=== PATIENT | female | born 1975 | race American Indian/Alaskan Native ===

== ENCOUNTER 2018-08-26 12:08 | Emergency (ER) | payer MEDICAID ==
[2018-08-26] MEDS ORDERED: IBUPROFEN PO ONE (15:36)
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
[2018-08-26 18:20] VITALS: BP 116/71
== END 2018-08-26 18:19 | disposition home or self-care (01) ==
LOC: ED 12:08
DX: M54.5 Low back pain (principal); M25.511 Pain in right shoulder; M25.512 Pain in left shoulder; M25.569 Pain in unspecified knee; M54.2 Cervicalgia
CPT/HCPCS: 71110; 99283